=== PATIENT | male | born 1965 | race Caucasian/White ===

== ENCOUNTER 2025-08-14 10:10 | Emergency (ER) | payer OTHER ==
[2025-08-14] MEDS ORDERED: KETOROLAC 30 MG/ML INJ ONE (10:27)
[2025-08-14] MEDS ORDERED: NA CHLORIDE 0.9% 1,000 ML ONE (10:28)
[2025-08-14 11:00] LABS: Absolute Lymphocytes (CBC) 1.3 K/uL (0.7-4.9); Hematocrit 45.6 % (39.6-49.0); Hemoglobin 15.3 g/dL (13.6-17.9); MCH 29.6 pg (27.0-35.0); MCHC 33.4 g/dL (32.0-36.0); MCV 88.4 fL (80-100); MPV 9.4 fL (7.6-11.3); Nucleated RBC Absolute Count 0.0 (0-0); Nucleated Red Blood Cells % 0.1 % (0-0); RBC Red Blood Cell Count 5.16 M/uL (4.33-5.43); White Blood Count 16.40 thou/uL (4.3-10.9)
--- NOTE | 2025-08-14 11:02 | RAD REPORT ---
EXAMINATION: Head C Spine Mpr Wo Con CLINICAL INDICATION: Male, 60 years old. TRAUMA TECHNIQUE: Axial CT images from the skull base to the vertex without intravenous contrast. Axial CT i mages through the cervical spine were obtained without intravenous contrast. Sagittal and coronal reformatted images were created from the data set. Coronal and sagittal reformatted images were creat ed from the data set. One or more of the following dose reduction techniques were used: Automated exposure control, adjustment of the mA and/or kV according to patient size, and/or iterative reconstr uction. Unless otherwise specified, incidental findings do not require dedicated imaging follow-up. [id number]. COMPARISON: No prior exams FINDINGS: Head: INTRACRANIAL: No acute intracranial hemorrhage. No acute large vascular territory infarct. No hydroce phalus. No mass effect or midline shift. No significant white matter disease. VASCULATURE: No visualized abnormalities in the arteries or dural venous sinuses. SCALP/SKULL: No calvarial fracture identified. No acute soft tissue abnormality. SINUSES: The visualized paranasal sinuses are mostly clear. No significant mastoid fluid. Cervical spine: ALIGNMENT: The cervical spine has normal alignment without scoliosis or spondylolisthesis. BONE: Nondisplaced right occipital condyle fracture. DEGENERATIVE: Multilevel cervical spondylosis with evidence of bilateral neural foraminal narrowing. No high grade central spinal stenosis. SOFT TISSUE: No significant abnormalities in the soft tissue of the neck. The visualized lung apices are clear. IMPRESSION: No acute intracranial abnormality or skull fracture. Nondisplaced fracture at the right occipital condyle. No other fractures identified of the cervical s pine. No traumatic malalignment.
--- NOTE | 2025-08-14 11:11 | RAD REPORT ---
EXAM: Chest Abd Pelvis Wo Con CLINICAL INDICATION: Male, 60 years old TRAUMA TECHNIQUE: CT chest, abdomen and pelvis was performed, without IV contrast, as per department protoco l. Axial, sagittal and coronal reconstructions were obtained. One or more of the following dose reduction techniques were used: Automated exposure control, adjustment of the mA and/or kV according to the patient size, and/or iterative reconstruction. Unless otherwise specified, incidental findings do not require dedicated imaging follow-up. [id number]. COMPARISON: No prior exams FINDINGS: The lack of intravenous contrast limits the sensitivity of this exam for evaluation of solid visceral organs, vascular structures, and retroperitoneum. ---THORAX--- LOWER NECK AND CHEST WALL: Visualized thyroid gland and soft tissues are normal. MEDIASTINUM AND LYMPH NODES: No mediastinal mass or fluid collection. Normal size mediastinal, hilar, and axillary lymph nodes. Mild distal esophageal thickening. THORACIC AORTA: No thoracic aortic aneurysm. PULMONARY ARTERIES: Caliber is within normal limits. HEART: Normal heart size. No coronary calcifications.No significant pericardial effusion. LUNGS AND AIRWAYS: Airways are clear. No evidence of airspace or interstitial process. No suspicious and/or stable pulmonary nodules. PLEURA: No pleural effusion. No pneumothorax. ---ABDOMEN/PELVIS--- UPPER GI: No significant abnormality. LIVER: Nodular liver contour. GALLBLADDER/BILE DUCTS: No biliary ductal dilatation.? PANCREAS: No mass, ductal dilation, or ann-pancreatic fluid. SPLEEN: Unremarkable. ADRENALS: No adrenal masses. KIDNEYS AND URETERS: No hydronephrosis.No suspicious renal mass.No renal calculi.No ureteral calculi. ABDOMINAL AORTA AND OTHER VESSELS: Normal caliber aorta and IVC. PERITONEUM: No abnormal free fluid. No free air. LYMPH NODES: No pathologic lymphadenopathy. ABDOMINAL WALL: Unremarkable SMALL BOWEL/COLON: Small bowel has normal course and caliber. No colonic wall thickening or pericolon ic inflammatory changes. URINARY BLADDER: Underdistended but grossly unremarkable. REPRODUCTIVE ORGANS: Mild prostatomegaly. ---COMBINED--- MUSCULOSKELETAL: Displaced and mildly comminuted fracture of the right scapular wing with over a full shaft width of anterior displacement of the dominant inferior fragment. No extension to the glenoid or scapular spine. Slight superior endplate compression deformity of T1 consistent with an ac koffi compression fracture.Mild superior end plate deformity is present at T4 which is age indeterminate. Inferior plate deformity at T7 is favored chronic. ADDITIONAL FINDINGS: None. IMPRESSION: T1 compression fracture with less than 20% loss of height. Displaced and mildly comminuted right scap ular fracture. Age-indeterminate T4 superior endplate fracture.
[2025-08-14] MEDS ORDERED: HYDROMORPHONE HCL 1 MG/ML INJ ONE ×2 (11:12→14:01)
[2025-08-14] MEDS ORDERED: ONDANSETRON 4 MG/2 ML VIAL ONE (11:13)
[2025-08-14 11:27] LABS: BUN Blood Urea Nitrogen 11.0 mg/dL (7-18); Glucose Level 159.0 mg/dL (74-106)
[2025-08-14 11:30] LABS: Anion Gap 10.4 mEq/L (5.0-15.0); Potassium 4.4 mEq/L (3.5-5.1)
--- NOTE | 2025-08-14 11:36 | EDPHYS ---
Physician Documentation [facility] Name: Silvano Andino Age: 60 yrs Sex: Male : 1965 Arrival Date: 08/14/2025 Time: 10:10 Bed 5 Private MD: ED Physician Hailey Mcallister HPI: 08/14 10:52 This 60 yrs old Male presents to ER via EMS with complaints of Fall Injury. sp3 10:52 60-year-old male with history of hypertension, diabetes, hyperlipidemia now presents to [facility] the ED with chief complaint fall injury. Patient was working on a roof and "walked right off the edge". Landed approximate 12 feet down onto the ground. Patient complains of left wrist pain, facial injuries, mid chest and mid back pain. Patient arrives via EMS fully immobilized. ROS negative for headache, loss of consciousness, abdominal pain, lower extremity pain, syncope, bleeding, or any other concerning signs or symptoms on ROS at this time.. Historical: - Allergies: 10:25 No Known Allergies; jl7 - PMHx: 10:46 Hypertensive disorder; Diabetes mellitus; Hypercholesterolemia; jl7 - Immunization history:: Adult Immunizations. - Infectious Disease History:: Denies. - Immunization history: Last tetanus immunization: unknown. - Social history:: Smoking status: unknown. ROS: 10:52 Constitutional: Negative for fever, chills, and weight loss, Eyes: Negative for injury, sp3 pain, redness, and discharge, ENT: Negative for injury, pain, and discharge, Neck: Negative for injury, pain, and swelling, Cardiovascular: Negative for chest pain, palpitations, and edema, Respiratory: Negative for shortness of breath, cough, wheezing, and pleuritic chest pain, Abdomen/GI: Negative for abdominal pain, nausea, vomiting, diarrhea, and constipation, Skin: Negative for injury, rash, and discoloration, Psych: Negative for depression, anxiety, suicide ideation, homicidal ideation, and hallucinations, Allergy/Immunology: Negative for hives, rash, and allergies, Endocrine: Negative for neck swelling, polydipsia, polyuria, polyphagia, and marked weight changes, 10:52 All other systems are negative, Exam: 10:53 Constitutional: This is a well developed, well nourished patient who is awake, alert, sp3 and in no acute distress. Head/Face: Normocephalic, atraumatic. Eyes: Pupils equal round and reactive to light, extra-ocular motions intact. Lids and lashes normal. Conjunctiva and sclera are non-icteric and not injected. Cornea within normal limits. Periorbital areas with no swelling, redness, or edema. Neck: Trachea midline, no thyromegaly or masses palpated, and no cervical lymphadenopathy. Supple, full range of motion without nuchal rigidity, or vertebral point tenderness. No Meningismus. Cardiovascular: Regular rate and rhythm with a normal S1 and S2. No gallops, murmurs, or rubs. Normal PMI, no JVD. No pulse deficits. Respiratory: Lungs have equal breath sounds bilaterally, clear to auscultation and percussion. No rales, rhonchi or wheezes noted. No increased work of breathing, no retractions or nasal flaring. Abdomen/GI: Soft, non-tender, with normal bowel sounds. No distension or tympany. No guarding or rebound. No evidence of tenderness throughout. Neuro: Awake and alert, GCS 15, oriented to person, place, time, and situation. Cranial nerves II-XII grossly intact. Motor strength 5/5 in all extremities. Sensory grossly intact. Cerebellar exam normal. Normal gait. Psych: Awake, alert, with orientation to person, place and time. Behavior, mood, and affect are within normal limits. 10:53 Back: No neck pain or midline tenderness noted. Mid back pain mild to palpation on bone and musculature. Chest exam normal. Abdominal exam normal. Left wrist mildly swollen and tender without crepitus. Distal neurovascular exam all extremities normal. Vital signs are normal with blood pressure 177/95 and heart rate 62. Patient is in no acute distress., Vital Signs: 10:19 BP 144 / 85; Pulse 65; Resp 18; Pulse Ox 95% ; jl7 10:44 BP 177 / 95; Pulse 62; Resp 15; Temp 97; Pulse Ox 98% ; Pain 5/10; jl7 11:25 BP 159 / 88; Pulse 79; Resp 15; Pulse Ox 96% ; Pain 0/10; jl7 11:26 Weight 95.25 kg; Height 5 ft. 10 in. ; jl7 11:31 Pain 0/10; jl7 12:07 BP 152 / 83; Pulse 77; Resp 15; Pulse Ox 96% ; jl7 12:45 BP 160 / 91; Pulse 76; Resp 15; Pulse Ox 97% ; Pain 0/10; jl7 13:02 BP 152 / 87; Pulse 78; Resp 15; Pulse Ox 96% ; jl7 11:26 Body Mass Index 30.13 (95.25 kg, 177.8 cm) jl7 10:44 Pain Scale: Adult jl7 11:25 Pain Scale: Adult jl7 11:31 Pain Scale: Adult jl7 12:45 Pain Scale: Adult jl7 10:19 EMS Vitals jl7 Park Coma Score: 10:19 Eye Response: spontaneous(4). Motor Response: obeys commands(6). Verbal Response: jl7 oriented(5). Total: 15. 11:13 Eye Response: spontaneous(4). Motor Response: obeys commands(6). Verbal Response: jl7 oriented(5). Total: 15. 12:00 Eye Response: spontaneous(4). Motor Response: obeys commands(6). Verbal Response: jl7 oriented(5). Total: 15. 12:45 Eye Response: spontaneous(4). Motor Response: obeys commands(6). Verbal Response: jl7 oriented(5). Total: 15. Trauma Score (Adult): 10:45 Eye Response: spontaneous(1); Verbal Response: oriented(1); Motor Response: obeys jl7 commands(2); Systolic BP: > 89 mm Hg(4); Respiratory Rate: 10 to 29 per min(4); Park Score: 15; Trauma Score: 12 MDM: 10:16 Medical Screening Exam initiated sp3 10:54 Data reviewed: vital signs, nurses notes, [place] records, lab test result(s), sp3 radiologic studies. ED course: 60-year-old male with fall from 12 feet with significant mechanism of injury. Differential diagnosis includes closed head injury, facial contusions, intracranial hemorrhage, left wrist sprain versus fracture, back injury, chest injury, among others. I do not believe patient had medical etiology or medical prodrome prior to the fall. Workup will include full trauma gram CT scan of the head, C-spine, chest abdomen pelvis and routine labs. Ketorolac IV for symptomatic pain control. IV fluids. Disposition pending workup and patient course.. 11:32 ED course: Patient with extensive cervical spine fractures including odontoid lucency sp3 in the type II pattern, multiple compression fractures, pedicle fractures and transverse process fractures. Patient is neurologically intact with no deficits whatsoever. Patient is laying comfortably with c-collar in place. CT head is negative. Patient also has scapular fracture on the left. Will transfer to trauma center for neurosurgical evaluation.. 08/14 10:16 Order name: Basic Metabolic Panel; Complete Time: 11:33 sp3 08/14 10:16 Order name: CBC with Diff; Complete Time: 11:52 sp3 08/14 10:16 Order name: Type And Screen; Complete Time: 11:52 sp3 08/14 11:12 Order name: CBC Smear Scan; Complete Time: 11:52 EDMS 08/14 10:20 Order name: Wrist Left (3 View) XRAY; Complete Time: 12:02 sp3 08/14 10:23 Order name: Head C Spine Mpr Wo Con; Complete Time: 11:23 EDMS 08/14 10:23 Order name: Chest Abd Pelvis Wo Con; Complete Time: 11:11 EDMS 08/14 10:16 Order name: Labs collected and sent; Complete Time: 10:45 sp3 08/14 10:16 Order name: NPO; Complete Time: 10:26 sp3 08/14 12:02 Order name: Splint - Volar Wrist Splint; Complete Time: 12:54 sp3 Administered Medications: 10:47 Drug: Ketorolac IVP 30 mg IVP once Route: IVP; Site: right antecubital; 7 11:10 Follow up: Response: No adverse reaction; Pain is unchanged, physician notified jl7 10:47 Drug: NS 0.9% IV 500 ml 500 ml IV at 1 bolus once; to be given as a bolus over 30 jl7 minutes Volume: 500 ml; Route: IV; Rate: 1 bolus; Site: right antecubital; 11:30 Follow up: IV Status: Completed infusion; IV Intake: 500ml jl7 11:25 Drug: HYDROmorphone IVP 1 mg IVP once Route: IVP; Site: right antecubital; jl7 11:31 Follow up: Pain 0/10 Adult; Response: No adverse reaction; Pain is decreased; RASS: [facility] Alert and Calm (0) 11:25 Drug: Ondansetron IVP 4 mg IVP once; over 2 minutes Route: IVP; Site: right antecubital; 11:31 Follow up: Response: No adverse reaction 14:08 Drug: HYDROmorphone IVP 1 mg IVP once Route: IVP; Site: right antecubital; jl7 14:08 Follow up: Response: Medication Administered at Departure 14:08 Not Given (Duplicate Order): hydromorphone1 mg IVP once jl7 Disposition Summary: 08/14/25 11:36 Transfer Ordered Notes: Transfer Location: [facility] sp3 Reason: Higher level of care sp3 Condition: Serious sp3 Problem: new sp3 Symptoms: have worsened sp3 Accepting Physician: Trauma team [facility] [place](08/14/25 14:09) Diagnosis - Right scapular fracture with dislocation, odontoid type II fracture, multiple sp3 compression fractures including C5-C6, T1, T4, C5 pedicle fracture, multiple transverse process fractures, closed head injury, concussion, fall from height greater than 12 feet. - Left wrist fracture sp3 Forms: - Medication Reconciliation Form sp3 - SBAR form sp3 Critical care time excluding procedures: 12:12 Critical care time: Bedside Care: 10 minutes, Consultation: 15 minutes, Family sp3 Intervention: 10 minutes. Total time: 35 minutes Signatures: Dispatcher [employer] Mei Oneal RN RN jl7 Hailey Mcallister MD MD sp3 Corrections: (The following items were deleted from the chart) 10:23 10:16 Head C Spine Cap Wo Con+CT.RAD.BRZ ordered. ARNIE GAITAN 10:25 10:25 Home Meds: None; jl7 12:03 11:36 Trauma team [facility] [place] sp3 sp3 14:09 12:03 Trauma team [facility] [place] sp3 jl7
--- NOTE | 2025-08-14 11:36 | ER ---
Nurse's Notes [facility] Name: Silvano Andino Age: 60 yrs Sex: Male : 1965 Arrival Date: 08/14/2025 Time: 10:10 Bed 5 Private MD: Diagnosis: Right scapular fracture with dislocation, odontoid type II fracture, multiple compression fractures including C5-C6, T1, T4, C5 pedicle fracture, multiple transverse process fractures, closed head injury, concussion, fall from height greater than 12 feet.;Left wrist fracture Presentation: 08/14 10:19 Chief complaint: EMS states: Fell off scaffold, 12 ft high, pt sitting up on EMS jl7 arrival, EMS reports no broken bones on assessment. Pt reports pain to shoulders and left wrist. Swelling to left wrist. C-collar and back board removed by EMS and Dr. Mcallister. Care prior to arrival: Cervical collar in place. Placed on backboard. both removed prior to Primary RN arrival to ED room 5. Mechanism of Injury: Fall approximately 12 feet. Trauma event details: Injury occurred in the [facility], Injury occurred: at home. 10:19 Acuity: JANNETTE 2 jl7 10:19 Method Of Arrival: EMS: [facility] jl7 10:19 Care prior to arrival: Glucose check: 159. jl7 10:25 Coronavirus screen: At this time, the client does not indicate any symptoms associated jl7 with coronavirus-19. Ebola Screen: No symptoms or risks identified at this time. Initial Sepsis Screen: Does the patient meet any 2 criteria? No. Patient's initial sepsis screen is negative. Does the patient have a suspected source of infection? No. Patient's initial sepsis screen is negative. Risk Assessment: Do you want to hurt yourself or someone else? Patient reports no desire to harm self or others. Onset of symptoms was August 14, 2025. Trauma Activation: Not Applicable Physician: ED Physician; Name: ; Notified At: ; Arrived At: Physician: General Surgeon; Name: ; Notified At: ; Arrived At: Physician: Radiology; Name: ; Notified At: ; Arrived At: Physician: Respiratory; Name: ; Notified At: ; Arrived At: Physician: Lab; Name: ; Notified At: ; Arrived At: Historical: - Allergies: 10:25 No Known Allergies; jl7 - PMHx: 10:46 Hypertensive disorder; Diabetes mellitus; Hypercholesterolemia; jl7 - Immunization history:: Adult Immunizations. - Infectious Disease History:: Denies. - Immunization history: Last tetanus immunization: unknown. - Social history:: Smoking status: unknown. Screenin:19 Abuse screen: Denies threats or abuse. Denies injuries from another. Tuberculosis jl7 screening: No symptoms or risk factors identified. 12:23 [facility] ED Fall Risk Assessment (Adult) History of falling in the last 3 months, jl7 including since admission Yes- single mechanical fall (1 pt) Confusion or Disorientation No (0 pts) Intoxicated or Sedated No (0 pts) Impaired Gait No (0 pts) Mobility Assist Device Used No (0 pt) Altered Elimination No (0 pt) Score/Fall Risk Level 0 - 2 = Low Risk Oriented to surroundings, Maintained a safe environment. Nutritional screening: No deficits noted. Primary Survey: 10:19 NO uncontrolled hemorrhage observed. Breathing/Chest: Spontaneous respiratory effort, jl7 equal unlabored respirations, breath sounds clear bilaterally, regular pattern, symmetrical chest rise and fall. Circulation: No external hemorrhage present. Regular and strong central pulse, skin warm/dry/normal color. Disability Client is alert. Exposure/Environment: There is no evidence of uncontrolled external bleeding. A warming method has been applied: A warm blanket has been provided to the patient. 10:45 Reassessment Breathing: Spontaneous respiratory effort, equal unlabored respirations, jl7 breath sounds clear bilaterally, regular pattern with symmetrical chest rise and fall. Secondary Survey: 11:15 HEENT: Head No injury/deformity Face Other abrasions, bruising to left facial cheek jl7 Eyes: No injury or deformity noted. Ears: clear Nose: clear Throat: No injury or deformity noted. Assessment: 10:19 General: Appears in no apparent distress. uncomfortable, Behavior is calm, cooperative, jl7 appropriate for age. Pain: Complains of pain in left scapular area, right scapular area and left wrist Pain currently is 6 out of 10 on a pain scale. Cardiovascular: Patient's skin is warm and dry. Respiratory: Airway is patent Respiratory effort is even, unlabored, Respiratory pattern is regular, symmetrical. Derm: Skin is pink, warm \T\ dry. abrasions to left facial cheek. 11:13 Reassessment: Pt reports no change in pain, ERD notified, see MAR for orders. jl7 11:15 Reassessment: VO to place C-Collar back on patient, C-collar placed on pt as ordered. jl7 11:25 Reassessment: Dr. Mcallister at bedside discussing results and POC. jl7 12:00 Reassessment: Patient appears in no apparent distress at this time. Patient and/or jl7 family updated on plan of care and expected duration. Pain level reassessed. Patient is alert, oriented x 3, equal unlabored respirations, skin warm/dry/pink. pt denies pain at this time Patient states symptoms have improved. 13:00 Reassessment: Patient appears in no apparent distress at this time. No changes from 7 previously documented assessment. Patient and/or family updated on plan of care and expected duration. Pain level reassessed. Patient is alert, oriented x 3, equal unlabored respirations, skin warm/dry/pink. Awaiting acceptance for transfer. 14:07 Reassessment: EMS at bedside to transport pt. jl7 Vital Signs: 10:19 BP 144 / 85; Pulse 65; Resp 18; Pulse Ox 95% ; jl7 10:44 BP 177 / 95; Pulse 62; Resp 15; Temp 97; Pulse Ox 98% ; Pain 5/10; jl7 11:25 BP 159 / 88; Pulse 79; Resp 15; Pulse Ox 96% ; Pain 0/10; jl7 11:26 Weight 95.25 kg; Height 5 ft. 10 in. ; jl7 11:31 Pain 0/10; jl7 12:07 BP 152 / 83; Pulse 77; Resp 15; Pulse Ox 96% ; jl7 12:45 BP 160 / 91; Pulse 76; Resp 15; Pulse Ox 97% ; Pain 0/10; jl7 13:02 BP 152 / 87; Pulse 78; Resp 15; Pulse Ox 96% ; jl7 11:26 Body Mass Index 30.13 (95.25 kg, 177.8 cm) jl7 10:44 Pain Scale: Adult jl7 11:25 Pain Scale: Adult jl7 11:31 Pain Scale: Adult jl7 12:45 Pain Scale: Adult jl7 10:19 EMS Vitals jl7 Park Coma Score: 10:19 Eye Response: spontaneous(4). Motor Response: obeys commands(6). Verbal Response: [facility] oriented(5). Total: 15. 11:13 Eye Response: spontaneous(4). Motor Response: obeys commands(6). Verbal Response: jl7 oriented(5). Total: 15. 12:00 Eye Response: spontaneous(4). Motor Response: obeys commands(6). Verbal Response: jl7 oriented(5). Total: 15. 12:45 Eye Response: spontaneous(4). Motor Response: obeys commands(6). Verbal Response: jl7 oriented(5). Total: 15. Trauma Score (Adult): 10:45 Eye Response: spontaneous(1); Verbal Response: oriented(1); Motor Response: obeys jl7 commands(2); Systolic BP: > 89 mm Hg(4); Respiratory Rate: 10 to 29 per min(4); Park Score: 15; Trauma Score: 12 ED Course: 10:14 Patient arrived in ED. bd 10:14 Hailey Mcallister MD is Attending Physician. sp3 10:15 Mei Nicholas, RN is Primary Nurse. jl7 10:19 Patient has correct armband on for positive identification. jl7 10:22 Triage completed. jl7 10:25 Arm band placed on right wrist. jl7 10:30 Head C Spine Mpr Wo Con In Process Unspecified. EDMS 10:30 Chest Abd Pelvis Wo Con In Process Unspecified. EDMS 10:47 Patient maintains SpO2 saturation greater than 95% on room air. Thermoregulation: warm jl7 blanket given to patient. 10:47 Initial lab(s) drawn, by mi, sent to lab. Inserted saline lock: 18 gauge in right jl7 antecubital area, using aseptic technique. Blood collected. Flushed with 10 mL NS. 11:13 Wrist Left (3 View) XRAY In Process Unspecified. EDMS 11:33 initiated transfer to [facility]. bd 12:23 Provided Education on: POC. jl7 12:23 No provider procedures requiring assistance completed. Patient transferred, IV remains jl7 in place. intact, No redness/swelling at site. 13:00 pt accepted in transfer to [place] [id number] Monterroso admin approval given bd by Ramirez Hammond. Administered Medications: 10:47 Drug: Ketorolac IVP 30 mg IVP once Route: IVP; Site: right antecubital; jl7 11:10 Follow up: Response: No adverse reaction; Pain is unchanged, physician notified jl7 10:47 Drug: NS 0.9% IV 500 ml 500 ml IV at 1 bolus once; to be given as a bolus over 30 jl7 minutes Volume: 500 ml; Route: IV; Rate: 1 bolus; Site: right antecubital; 11:30 Follow up: IV Status: Completed infusion; IV Intake: 500ml jl7 11:25 Drug: HYDROmorphone IVP 1 mg IVP once Route: IVP; Site: right antecubital; jl7 11:31 Follow up: Pain 0/10 Adult; Response: No adverse reaction; Pain is decreased; RASS: jl7 Alert and Calm (0) 11:25 Drug: Ondansetron IVP 4 mg IVP once; over 2 minutes Route: IVP; Site: right antecubital;jl7 11:31 Follow up: Response: No adverse reaction jl7 14:08 Drug: HYDROmorphone IVP 1 mg IVP once Route: IVP; Site: right antecubital; jl7 14:08 Follow up: Response: Medication Administered at Departure jl7 14:08 Not Given (Duplicate Order): hydromorphone1 mg IVP once jl7 Medication: 12:23 VIS not applicable for this client. jl7 Intake: 11:30 IV: 500ml; Total: 500ml. jl7 11:30 IV: 500ml; Total: 1000ml. jl7 Outcome: 11:36 ER care complete, transfer ordered by . sp3 14:07 Transferred by ground EMS to [facility], Transfer form completed. jl7 X-rays sent w/ patient. 14:07 Condition: stable 14:07 Discharge instructions given to patient, family, Instructed on the need for transfer, Demonstrated understanding of instructions, 14:09 Patient's length of stay in the Emergency Department was greater than 2 hours. jl7 14:09 Patient left the ED. jl7 Signatures: Dispatcher [employer] EDMS Julieta Trent Jahala, RN RN jl7 Hailey Mcallister MD MD sp3 Corrections: (The following items were deleted from the chart) 10:25 10:25 Home Meds: None; jl7 jl7 12:23 10:45 IV 500, input 500, jl7 jl7 14:08 14:07 HYDROmorphone IVP 1 mg IVP in right antecubital jl7 jl7
[2025-08-14 11:47] LABS: Anisocytosis SLIGHT; Blood Morphology Comment NOTED (NOT SEEN); Macrocytosis SLIGHT; White Blood Cell Scan OK (OK)
--- NOTE | 2025-08-14 12:00 | RAD REPORT ---
EXAMINATION: Wrist Left 3 View VIEWS: Three views CLINICAL INDICATION: Male, 60 years old. fall trauma COMPARISON: No prior exams IMPRESSION: Lunate dislocation suspected. There is widening of the scapholunate interval. The lunate is tilted in the volar direction. There is posttraumatic proximal migration of the capitate. CT could assess for additional fractures. Distal radial impaction fracture with intra-articular extension. Degenerative changes are present at the base of the thumb.
[2025-08-14 14:17] VITALS: TEMP 97
[2025-08-14 14:25] VITALS: BP 152/87; O2SAT 96
== END 2025-08-14 14:09 | disposition short-term general hospital (02) ==
LOC: ER 10:10
DX: S42.101A Fracture of unspecified part of scapula, right shoulder, initial encounter for closed fracture (principal); S12.112A Nondisplaced Type II dens fracture, initial encounter for closed fracture; S12.400A Unspecified displaced fracture of fifth cervical vertebra, initial encounter for closed fracture; S12.500A Unspecified displaced fracture of sixth cervical vertebra, initial encounter for closed fracture; S22.019A Unspecified fracture of first thoracic vertebra, initial encounter for closed fracture; S22.049A Unspecified fracture of fourth thoracic vertebra, initial encounter for closed fracture; S62.102A Fracture of unspecified carpal bone, left wrist, initial encounter for closed fracture; S06.0X0A Concussion without loss of consciousness, initial encounter; W13.2XXA Fall from, out of or through roof, initial encounter; E11.9 Type 2 diabetes mellitus without complications; I10 Essential (primary) hypertension
CPT/HCPCS: 96361; 85025; 80048; 36415; 86900; 86850; 86901; 70450; 71250; 72125; 74176; 73110; 96375; 96374; 99285; J1171 ×2; J2405; J7030; J1885